=== PATIENT | female | born 1930 | race Two or more races ===

== ENCOUNTER → 2019-06-28 | Outpatient (CLI) | payer OTHER ==
[2019-06-28 08:53] LABS: Basophils # (auto) 0 10 ^3/uL (0-0.2); Eosinophils # (auto) 0.2 10 ^3/uL (0-0.8); Hemoglobin 12.7 g/dL (12.2-16.2); Lymphocytes # (auto) 1.3 10 ^3/uL (0.4-5.4); Monocytes # (auto) 0.3 10 ^3/uL (0-1.3); White Blood Cell 5.8 10^3/uL (4.4-10.8)
[2019-06-28 08:55] LABS: Basophils % (auto) 0.7 % (0.0-2.0); Eosinophils % (auto) 3.1 % (0.0-7.0); Hematocrit 40.4 % (36.0-46.0); Lymphocytes % (auto) 22.6 % (10.0-50.0); Mean Corpuscular Hemoglobin 25.4 pg (28.0-32.0); Mean Corpuscular Hgb Conc. 31.4 g/dL (32.0-36.0); Mean Corpuscular Volume 80.8 fL (80.0-100.0); Monocytes % (auto) 5.8 % (0.0-12.0); Neutrophils # (auto) 3.9 10 ^3/uL (1.6-8.6); Neutrophils % (auto) 67.8 % (37.0-80.0); Platelet Count (auto) 233 10^3/uL (140-450); Red Cell Distribution Width 15.5 % (11.8-14.3)
[2019-06-28 09:01] LABS: Urine Bacteria FEW /hpf (None Seen); Urine Blood Negative /uL (Negative); Urine Mucus FEW (None Seen); Urine WBC 5 /hpf (0 - 5)
[2019-06-28 09:12] LABS: Calcium 8.4 mg/dL (8.5-10.1); Potassium 3.7 mmol/L (3.5-5.1)
[2019-06-28 09:14] LABS: BUN/Creatinine Ratio 35.5
[2019-06-28 09:17] LABS: Bilirubin, Total 0.4 mg/dL (0.2-1.0); Total Protein 7.3 g/dL (6.4-8.2)
== END | disposition home or self-care (01) ==
LOC: LAB 08:20
PROVIDERS: ATTEND Internal Medicine
DX: I10 Essential (primary) hypertension (principal); E03.9 Hypothyroidism, unspecified; F03.90 Unspecified dementia, unspecified severity, without behavioral disturbance, psychotic disturbance, mood disturbance, and anxiety
CPT/HCPCS: 36415; 80053; 81001; 84443; 85025

== ENCOUNTER → 2019-10-22 | Outpatient (CLI) | payer OTHER | END | disposition home or self-care (01) | LOC: LAB 16:25 | PROVIDERS: ATTEND Internal Medicine | DX: E03.9 Hypothyroidism, unspecified (principal); R63.4 Abnormal weight loss | CPT/HCPCS: 36415; 84443 ==

== ENCOUNTER → 2020-01-20 | Outpatient (CLI) | payer OTHER | END | disposition home or self-care (01) | LOC: LAB 16:10 | PROVIDERS: ATTEND Internal Medicine | DX: E03.9 Hypothyroidism, unspecified (principal) | CPT/HCPCS: 36415; 84443 ==